=== PATIENT | male | born 1995 | race Caucasian/White ===

== ENCOUNTER 2018-10-16 23:39 | Emergency (ER) | payer OTHER ==
[2018-10-17] MEDS ORDERED: KETOROLAC TROMETHAMINE 60 MG/2 ML SDV IM ONE (00:09)
[2018-10-17] MEDS ORDERED: METHYLPREDNISOLONE ACETATE INJ 80 MG/1 ML VIAL IM ONE (00:10)
[2018-10-17] MEDS ORDERED: LIDOCAINE 5% (700 MG) TRANSDERMAL ADH..PATCH TP ONE (00:11)
[2018-10-17] MEDS ORDERED: TIZANIDINE HCL 4 MG TABLET PO ONE (00:11)
[2018-10-17] MEDS ORDERED: HYDROCODONE/ACETAMINOPHEN 5-325 MG (6 TAB/ER DISP) PO PRN (00:17)
--- NOTE | 2018-10-17 00:17 | ER Document Report ---
ED General - General Chief Complaint: Back Pain Stated Complaint: PAIN,LOWER LEFT BACK Time Seen by Provider: 10/16/18 23:58 Mode of Arrival: Ambulatory Information source: Patient TRAVEL OUTSIDE OF THE [place] IN LAST 30 DAYS: No - HPI Patient complains to provider of: Left lower back pain Onset: Other - Chronic Onset/Duration: Constant, Worse Quality of pain: Sharp Severity: Severe Pain Level: 4 Associated symptoms: None Exacerbated by: Movement, Walking Relieved by: Denies Similar symptoms previously: No Recently seen / treated by doctor: No Notes: 23-year-old male with history of chronic low back pain. Has been worked up for this with x-rays and MRI. Has not seen a back specialist yet. States he is awaiting an appointment to be made for him. No bladder bowel dysfunction. No saddle anesthesia. No focal weakness. no Urinary symptoms. Past Medical History - General Information source: Patient - Social History Smoking Status: Smoker,Current Status Unk Family History: Reviewed & Not Pertinent Review of Systems - Review of Systems Notes: Constitutional: No fevers. No chills. EENT: No eye redness. No eye pain. No ear pain. No sore throat. Cardiovascular: No chest pain. No palpitations. Respiratory: No cough. No shortness of breath. No respiratory distress. Gastrointestinal: No abdominal pain. No nausea, vomiting, or diarrhea. Genitourinary: Atraumatic. No lesions. No pain. No discharge. Musculoskeletal: Positive low back pain Skin: No rash or lesions. Lymphatic: No swollen lymph nodes. Neurologic: No headache. No syncope. Psychiatric: No suicidal or homicidal ideation. Physical Exam - Vital signs Vitals: Temp Pulse Resp BP Pulse Ox 98.1 F 65 18 126/66 H 97 10/16/18 23:53 10/16/18 23:53 10/16/18 23:53 10/16/18 23:53 10/16/18 23:53 - Notes Notes: General: Well-developed, well-nourished. In no acute distress. Non-toxic appearing. Cardiac: Well-perfused. Regular rate and rhythm. No murmurs, rubs, or gallops. Pulmonary: No respiratory distress. No cyanosis. Bilateral lung fiels are clear to auscultation. Abdominal: Non-distended. Non-rigid. Bowels sounds are present in all four quadrants. No guarding or rebound. HEENT: Head is atraumatic. Conjunctivae not reddened. No tearing. PERRL. EOMI. Orbits atraumatic. No periorbital swelling or erythema. Oropharynx is without erythema, swelling, or exudates. Neck: Supple. No adenopathy. No meningismus. Dermatologic: Warm with good turgor. No rash. Atraumatic. Chest: Atraumatic. No chest wall tenderness to palpation. Musculoskeletal: Moves all extremities well. No range of motion deficits. no muscular or joint tenderness. No paraspinal muscle tenderness. no midline spinal tenderness or step-off. Genitourinary: Examination deferred Neurologic: No gross neurologic deficits. Psychiatric: Normal mood. Course - Re-evaluation Re-evalutation: 10/17/18 00:14 Patient evidently has chronic back pain. He lists multiple medications that do not work or help him. I will give him a shot of Toradol as well as a long- acting Depo-Medrol shot. I will give him a 6 pack of [place] for his acute pain but I suspect that the Depo-Medrol will be kicking in appropriately by morning and should give him some lasting relief. - Vital Signs Vital signs: Temp Pulse Resp BP Pulse Ox 98.1 F 65 18 126/66 H 97 10/16/18 23:53 10/16/18 23:53 10/16/18 23:53 10/16/18 23:53 10/16/18 23:53 Discharge - Discharge Clinical Impression: Acute exacerbation of chronic low back pain Condition: Good Disposition: HOME, SELF-CARE Instructions: Ice Packs ([facility]), Low Back Pain ([facility]), Muscle Strain ([facility]), Oral Narcotic Medication ([facility]) Additional Instructions: You received a long-acting steroid shot that should give you some relief over the next several days. You may also try the Zanaflex if you have not already tried it. Many people have said that it works well for their chronic pain. Ice packs may be of help. [place] [facility] [place] [facility] Prescriptions: Tizanidine HCl [Zanaflex 4 Mg Tablet] 4 mg PO TIDP PRN #15 tablet PRN Reason: Referrals: doctor, your [Other] - Follow up as needed
[2018-10-17 00:59] VITALS: BP 119/51
== END 2018-10-17 01:02 | disposition home or self-care (01) ==
LOC: ER 23:39
DX: G89.29 Other chronic pain (principal); M54.5 Low back pain
CPT/HCPCS: 99283; 96372; J1885; J1040